=== PATIENT | female | born 1995 | race Two or more races ===

== ENCOUNTER 2022-11-20 23:50 | Emergency (ER) | payer MEDICAID ==
[~2022-11-20] VITALS: Ht 162.6 cm; Wt 89.7 kg
[2022-11-21 00:10] VITALS: BP 142/65
[2022-11-21] MEDS ORDERED: KETOROLAC TROMETH 30 MG/ML 1ML VIAL IM ONE (02:30)
[2022-11-21] MEDS ORDERED: IBUP-1456 PO (02:42)
== END 2022-11-21 03:12 | disposition home or self-care (01) ==
LOC: ER 23:50
DX: M25.571 Pain in right ankle and joints of right foot (principal); Z88.6 Allergy status to analgesic agent
CPT/HCPCS: 73630; 96372; 99283; J1885